=== PATIENT | male | born 2000 | race Caucasian/White ===

== ENCOUNTER 2022-08-28 16:32 | Emergency (ER) | payer OTHER, BC | END 2022-08-28 17:39 | disposition home or self-care (01) | LOC: JD.ED 16:32 | DX: S13.4XXA Sprain of ligaments of cervical spine, initial encounter (principal); Z88.5 Allergy status to narcotic agent; Z86.16 Personal history of COVID-19; V49.49XA Driver injured in collision with other motor vehicles in traffic accident, initial encounter; Y92.410 Unspecified street and highway as the place of occurrence of the external cause | CPT/HCPCS: 99283 ==